=== PATIENT | male | born 1955 | race Caucasian/White ===

== ENCOUNTER 2018-11-20 23:06 | Emergency (ER) | payer OTHER ==
[~2018-11-20] VITALS: Ht 180.3 cm; Wt 102.1 kg
[2018-11-20 23:26] VITALS: BP 173/101
--- NOTE | 2018-11-20 23:30 | NUR ---
PT AMBULATED TO BED 2.
--- NOTE | 2018-11-20 23:40 | NUR ---
PT BIB SELF C/O RIGHT SHOULDER PAIN. PT STATES SUDDEN ONSET OF RIGHT SHOULD PAIN X2 WEEKS; LIMITED AROM, NO DEFORMITY, REDNESS OR SWELLING NOTED. PT STATES 10/10 SORE PAIN, RADIATES DOWN TO RIGHT HAND. +STRONG RADIAL PULSE WNL BL; STRONG AND EQUAL HAND BULLET MAKER BL. CAP REFIL <2. PT ACTING APPROPRIALTY; SPEAKING IN CLEAR AND COMPLETE SENTENCES. BREATHING EQUAL AND UNLABORED; AUDIBLE WHEEZING BL. PT SMOKE CIGARETTES DAILY. PT IN GOWN, IN BED; BED IN LOWER LOCKED POSITION. ERMD AWARE OF PT STATUS. PMH: DENIES RX: IBUPROFEN W/O RELIEF
--- NOTE | 2018-11-20 23:45 | NUR ---
DR. JORDAN AT BEDSIDE FOR EVALUATION.
[2018-11-20] MEDS ORDERED: ALBUTEROL SULFATE/IPRATROPIU 3 ML SOL IH ONE (23:55)
[2018-11-20] MEDS ORDERED: KETOROLAC 60 MG/2 ML VIAL IM ONE (23:55)
--- NOTE | 2018-11-21 00:10 | NUR ---
RT AT BEDSIDE FOR BREATHING TX.
--- NOTE | 2018-11-21 00:34 | NUR ---
Patient discharged with v/s stable. Written and verbal after care instructions given and explained. Patient alert, oriented and verbalized understanding of instructions. Ambulatory with steady gait. All questions addressed prior to discharge. ID band removed. Patient advised to follow up with PMD. Rx of ROBAXIN, MOTRIN, TRAMADOL, ZITHROMAX, AND ALBUTEROL given. Patient educated on indication of medication including possible reaction and side effects. Opportunity to ask questions provided and answered.
[2018-11-21 00:35] VITALS: BP 164/88
== END 2018-11-21 00:35 | disposition home or self-care (01) ==
LOC: MED 23:06
DX: S46.911A Strain of unspecified muscle, fascia and tendon at shoulder and upper arm level, right arm, initial encounter (principal); J20.9 Acute bronchitis, unspecified; X58.XXXA Exposure to other specified factors, initial encounter; Y93.89 Activity, other specified; Y92.89 Other specified places as the place of occurrence of the external cause; Y99.8 Other external cause status
CPT/HCPCS: 73030; 94640; 94760; 96372; 99283; J1885; J7620; Q0092

== ENCOUNTER 2020-10-17 20:39 | Emergency (ER) | payer OTHER ==
[~2020-10-17] VITALS: Ht 180.3 cm; Wt 122.5 kg
[2020-10-17 20:49] VITALS: BP 130/89
--- NOTE | 2020-10-17 20:53 | NUR ---
TO LOBBY A/W BED AMBULATORY
--- NOTE | 2020-10-17 21:25 | NUR ---
X-Ray at bedside.
--- NOTE | 2020-10-17 21:31 | NUR ---
PATIENT PRESENTS TO ED WITH C/O BLE PAIN AND SWELLING X 3 MONTHS . PT STATES THAT HE HAS SEEN HIS PMD AND HAS BEEN GIVEN MEDS BUT IT IS NOT BETTER . 3+ PITTING EDEMA IS NOTED. ABDOMEN IS VERY LARGE AND ROUND. DENIES N/V/D; AAOX4 WITH EVEN AND STEADY GAIT; LUNGS CLEAR BL; HR EVEN AND REGULAR; PT DENIES ANY FEVER, CP, SOB, OR COUGH AT THIS TIME; PATIENT STATES PAIN OF 0/10 AT THIS TIME; VSS; PATIENT POSITIONED FOR COMFORT; HOB ELEVATED BED DOWN. ER MD MADE AWARE OF PT STATUS.
--- NOTE | 2020-10-17 21:50 | NUR ---
DR. ALCANTARA AT BEDSIDE FOR EXAM
--- NOTE | 2020-10-17 21:50 | NUR ---
Dr. Obrien examining patient.
[2020-10-17] MEDS ORDERED: IBUP-2213 PO (22:50)
[2020-10-17] MEDS ORDERED: ACET-8386 PO (22:50)
[2020-10-17] MEDS ORDERED: PRED20TA5 PO (22:50)
[2020-10-17 22:55] VITALS: BP 130/89
--- NOTE | 2020-10-17 22:55 | NUR ---
Patient discharged with v/s stable. Written and verbal after care instructions given and explained. Patient alert, oriented and verbalized understanding of instructions. Ambulatory with steady gait. All questions addressed prior to discharge. ID band removed. Patient advised to follow up with PMD. Rx of MOTRIN, VICODIN, PREDNISONE given. Patient educated on indication of medication including possible reaction and side effects. Opportunity to ask questions provided and answered.
== END 2020-10-17 22:55 | disposition home or self-care (01) ==
LOC: MED 20:39
DX: R60.9 Edema, unspecified (principal); K46.9 Unspecified abdominal hernia without obstruction or gangrene; J45.909 Unspecified asthma, uncomplicated; I10 Essential (primary) hypertension; F17.200 Nicotine dependence, unspecified, uncomplicated
CPT/HCPCS: 71045; 99283

== ENCOUNTER 2020-11-24 00:38 | Inpatient (IN) | payer OTHER, SELFPAY ==
[~2020-11-24] VITALS: Ht 180.3 cm; Wt 124.3 kg
[~2020-11-24 00:38] MED LIST: ACET-8386 PO; IBUP-2213 PO; PRED20TA5 PO
[2020-11-24 00:41] VITALS: BP 127/79
[2020-11-24] MEDS ORDERED: PIPERACILLIN/TAZOBACTAM 3.375 GM in DEXTROSE 5% 50 ML IV ONE (02:00)
[2020-11-24] MEDS ORDERED: PIPERACILLIN/TAZOBACTAM 3.375 GM VIAL IV ONE (02:15)
[2020-11-24 02:17] LABS: BASOPHILS # (AUTO) 0.1 K/uL (0.00-0.22); BASOPHILS % (AUTO) 0.8 % (0.0-2.0); EOSINOPHILS # (AUTO) 0.2 K/uL (0-0.4); EOSINOPHILS % (AUTO) 1.3 % (0.0-4.0); HEMATOCRIT 39.9 % (36-52); HEMOGLOBIN 13.3 g/dL (12.0-18.0); LYMPHOCYTES # (AUTO) 1.8 K/uL (2.0-11.5); LYMPHOCYTES % (AUTO) 14.1 % (20.5-51.1); MEAN CORPUSCULAR HEMOGLOBIN 30 pg (27-31); MEAN CORPUSCULAR HGB CONC 33 g/dL (33-37); MEAN CORPUSCULAR VOLUME 90.7 fL (80-94); MONOCYTES % (AUTO) 7.8 % (1.7-9.3); NEUTROPHILS # (AUTO) 9.9 K/uL (1.8-7.7); PLATELET COUNT (AUTO) 250 K/uL (140-450); RED CELL DISTRIBUTION WIDTH 14.3 % (11.6-13.7); WHITE BLOOD COUNT (AUTO) 13.1 K/uL (4.8-10.8)
[2020-11-24 02:35] LABS: ALBUMIN 3.1 g/dL (3.4-5.0); ANION GAP 6.9 (8-16); CARBON DIOXIDE 37.9 mmol/L (21-32); CREATININE 1.2 mg/dL (0.6-1.3); POTASSIUM 3.8 mmol/L (3.5-5.1); TOTAL BILIRUBIN 0.4 mg/dL (0.0-1.0)
[2020-11-24] MEDS ORDERED: KETOROLAC 30 MG/ML VIAL ONE (05:10)
[2020-11-24] MEDS ORDERED: HYDR-5080 PO (06:04)
[2020-11-24] MEDS ORDERED: FURO-570 PO (06:04)
[2020-11-24] MEDS ORDERED: VANCOMYCIN PER PHARMACY MC PRN (08:25)
[2020-11-24] MEDS ORDERED: ACETAMINOPHEN 325 MG TAB PO PRN (08:25)
[2020-11-24] MEDS ORDERED: KCL 20 MEQ/WATER INJ PREMIX 200 ML IV PRN (08:25)
[2020-11-24] MEDS ORDERED: NACL 0.9% 1,000 ML IV SCH (08:25)
[2020-11-24] MEDS ORDERED: MORPHINE SULFATE 4 MG/ML SYR IVP PRN (08:25)
[2020-11-24] MEDS ORDERED: MAG SULF 2000 MG/WATER PREMIX 50 ML IV PRN (08:25)
[2020-11-24] MEDS ORDERED: HYDROcodone/APAP 5/325 MG 1 TAB TAB PO PRN (08:25)
[2020-11-24] MEDS ORDERED: ONDANSETRON 4 MG/2 ML VIAL IVP PRN (08:25)
[2020-11-24] MEDS ORDERED: MAGNESIUM OXIDE 400 MG TAB PO PRN (08:25)
[2020-11-24] MEDS ORDERED: POTASSIUM CHLORIDE 10 MEQ TABER PO PRN (08:25)
[2020-11-24 09:13] VITALS: BP 131/69
[2020-11-24 09:25] VITALS: BP 125/72
[2020-11-24] MEDS ORDERED: VANCOMYCIN HCL 1.25 GM in DEXTROSE 5% 250 ML IV SCH (11:00)
[2020-11-24] MEDS ORDERED: HYDROcodone/APAP 10/325 MG 1 TAB TAB PO PRN (16:35)
== END 2020-11-24 18:20 | disposition left against medical advice (07) | DRG 383 ==
LOC: MED 00:38 → MTU 08:27
PROVIDERS: ADMIT Hospitalist; ATTEND Hospitalist
DX: L03.211 Cellulitis of face (principal); E66.01 Morbid (severe) obesity due to excess calories; I10 Essential (primary) hypertension; J45.909 Unspecified asthma, uncomplicated; Z20.822 Contact with and (suspected) exposure to COVID-19; Z53.29 Procedure and treatment not carried out because of patient's decision for other reasons; Z68.38 Body mass index [BMI] 38.0-38.9, adult
CPT/HCPCS: 36415; 70486; 80053; 84484; 85025; 87040; 87081; 93005; 96365; 99285; J0696; J1885; J2543; J3370; J7060

== ENCOUNTER 2022-05-30 06:45 | Inpatient (IN) | payer OTHER, MEDICARE ==
[~2022-05-30] VITALS: Ht 180.3 cm; Wt 100.7 kg
[2022-05-30 06:45] VITALS: BP 171/105
[~2022-05-30 06:45] MED LIST changes: -ACET-8386 PO; +FURO-570 PO; +HYDR-5080 PO; -IBUP-2213 PO; -PRED20TA5 PO
--- NOTE | 2022-05-30 06:52 | NUR ---
PATIENT W/C ASSISTED TO BED 4
--- NOTE | 2022-05-30 06:54 | NUR ---
Patient being evaluated by physician at bedside.
--- NOTE | 2022-05-30 06:55 | NUR ---
RT CALLED BY ASSISTANT TO THE [facility]. STATED THEY WOULD COME DOWN TO ASSESS PT WHEN ORDERS WHERE IN PLACE. AARON FITZPATRICK AWARE.
[2022-05-30] MEDS ORDERED: ALBUTEROL 0.083% 2.5 MG/3 ML NEBU INH ONE (07:05)
[2022-05-30] MEDS ORDERED: IPRATROPIUM 0.02% 0.5 MG/2.5 ML NEBU INH ONE (07:05)
[2022-05-30] MEDS ORDERED: DEXAMETHASONE 10 MG/ML VIAL IVP ONE (07:05)
--- NOTE | 2022-05-30 07:08 | NUR ---
RT at bedside.
--- NOTE | 2022-05-30 07:08 | NUR ---
PMHX: COPD; RECEIVED ON SUPPLEMENTAL OXYGEN AT 4 LPM VIA [facility] GIVEN ORDERED ENCOURAGED PATIEN FOR INTERMITTENT DEEP BREATHING DURING THERAPY POST THERAPY TITRATED FIO2 TO 2 LPM MCKENZIE
--- NOTE | 2022-05-30 07:08 | NUR ---
18G IV placed on right AC using aseptic technique. Saline flush and no infiltration noted. Pt has no c/o.
--- NOTE | 2022-05-30 07:13 | NUR ---
LAB AT BEDSIDE
[2022-05-30 07:26] LABS: BASOPHILS # (AUTO) 0.1 K/uL (0.00-0.22); BASOPHILS % (AUTO) 1.2 % (0.0-2.0); EOSINOPHILS # (AUTO) 0.4 K/uL (0-0.4); EOSINOPHILS % (AUTO) 4.9 % (0.0-4.0); HEMATOCRIT 39.7 % (36-52); HEMOGLOBIN 12.9 g/dL (12.0-18.0); LYMPHOCYTES # (AUTO) 1.6 K/uL (2.0-11.5); LYMPHOCYTES % (AUTO) 20.6 % (20.5-51.1); MEAN CORPUSCULAR HEMOGLOBIN 29 pg (27-31); MEAN CORPUSCULAR HGB CONC 32 g/dL (33-37); MEAN CORPUSCULAR VOLUME 90.7 fL (80-94); MONOCYTES # (AUTO) 0.7 K/uL (0.8-1.0); MONOCYTES % (AUTO) 8.4 % (1.7-9.3); NEUTROPHILS # (AUTO) 5.2 K/uL (1.8-7.7); NEUTROPHILS % (AUTO) 64.9 % (42.2-75.2); PLATELET COUNT (AUTO) 178 K/uL (140-450); RED BLOOD CELL COUNT(AUTO) 4.38 MIL/uL (4.20-6.10); RED CELL DISTRIBUTION WIDTH 14.6 % (11.6-13.7)
--- NOTE | 2022-05-30 07:30 | NUR ---
ASSUMED PATIENT CARE, NURSING ASSESSMENT COMPLETED.
[2022-05-30 08:22] LABS: ALBUMIN 3.3 g/dL (3.4-5.0); ANION GAP 10.1 (8-16); CARBON DIOXIDE 32.3 mmol/L (21-32); POTASSIUM 4.4 mmol/L (3.5-5.1); TOTAL BILIRUBIN 0.2 mg/dL (0.0-1.0)
[2022-05-30] MEDS ORDERED: OSELTAMIVIR PHOSPHATE 75 MG CAP PO ONE (09:05)
--- NOTE | 2022-05-30 09:14 | NUR ---
DISPO AND MEDICAL DECISION MAKING INPATIENT ADMISSION FOR FURTHER MANAGEMENT. PATIENT UPDATED ACCORDINGLY.
[2022-05-30] MEDS ORDERED: POTASSIUM CHLORIDE 10 MEQ TABER PO PRN (09:35)
[2022-05-30] MEDS ORDERED: ONDANSETRON 4 MG/2 ML VIAL IVP PRN (09:35)
[2022-05-30] MEDS ORDERED: MAGNESIUM OXIDE 400 MG TAB PO PRN (09:35)
[2022-05-30] MEDS ORDERED: HYDROcodone/APAP 5/325 MG 1 TAB TAB PO PRN (09:35)
[2022-05-30] MEDS ORDERED: ACETAMINOPHEN 325 MG TAB PO PRN (09:35)
[2022-05-30] MEDS ORDERED: MORPHINE SULFATE 4 MG/ML SYR IVP PRN (09:35)
[2022-05-30] MEDS: ALBUTEROL SULFATE/IPRATROPIU 3 ML SOL IH SCH ×2 (12:54→19:00)
--- NOTE | 2022-05-30 17:12 | NUR ---
TRANSPORTED TO [facility] FLOOR VIA GURNEY WITH ACLS PROTOCOL, PATIENT REPORT GIVEN TO COLEEN HARLEY. CONTINUITY OF CARE ENDORSED. PATIENT UPDATED ACCORDINGLY.
[2022-05-30] MEDS: BUDESONIDE 0.5 MG/2 ML NEBU INH SCH (19:30)
[2022-05-30] MEDS: HYDROcodone/APAP 7.5/325 MG 1 TAB PO PRN (19:44)
--- NOTE | 2022-05-30 19:44 | NUR ---
PRN PAIN MEDICATION WAS GIVEN TO PT DUE TO LOWER EXTREMITIES PAIN WITH PAIN SCALE OF 8/10. ALL SAFETY MEASURES IMPLEMENTED. BED IN LOW POSITION, BED WHEELS ON LOCKED AND CALL LIGHT WITHIN REACH.
--- NOTE | 2022-05-30 19:45 | NUR ---
RECEIVED PT FROM MORNING SHIFT NURSE. PT IS AOX4, AMBULATORY, ABLE TO VERBALIZE NEEDS AND ABLE TO FOLLOW COMMANDS. PT IS ON 1L NASAL CANNULA AND ON REGULAR DIET. PT HAS IV ON LEFT FOREARM GAUGE 18 SALINE LOCK. PT HAS NO S/S OF RESPIRATORY DISTRESS AND NO COMPLAIN OF PAIN AT THIS TIME, PT SKIN IS INTACT. ALL SAFETY MEASURES IMPLEMENTED. BED IN LOW POSITION, BED WHEELS ON LOCKED AND CALL LIGHT WITHIN REACH.
--- NOTE | 2022-05-30 19:56 | NUR ---
NOTIFIED DR. CALHOUN DUE PT WANTS HIS MEDICATION OF XANAX 0.5MG. DR. CALHOUN ORDER THE MEDICATION. ORDER WAS MADE AND CARRIED OUT.
[2022-05-30 20:00] VITALS: BP 154/92
[2022-05-30] MEDS ORDERED: ALPRAZolam 0.5 MG TAB PO PRN (20:10)
[2022-05-30] MEDS: methylPREDNISolone SS 40 MG/ML VIAL IVP SCH (20:27)
[2022-05-30] MEDS: FAMOTIDINE 20 MG TAB PO SCH (20:28)
--- NOTE | 2022-05-30 20:28 | NUR ---
SCHEDULED AND PRESCRIBED MEDICATION WAS GIVEN TO PT EXCEPT TAMIFLU DUE TO NOT AVAILABLE TO DEPARTMENT. CALLED HOUSE SUP. REGARDING THE MEDICATION. WILL GIVE IT, IF SHE CAN GET ONE. ALL SAFETY MEASURES IMPLEMENTED. BED IN LOW POSITION, BED WHEELS ON LOCKED AND CALL LIGHT WITHIN REACH.
[2022-05-30] MEDS: OSELTAMIVIR PHOSPHATE 75 MG CAP PO SCH (22:33)
--- NOTE | 2022-05-30 22:33 | NUR ---
TAMIFLU WAS GIVEN TO PT PER MD ORDER. ALL SAFETY MEASURES IMPLEMENTED. BED IN LOW POSITION, BED WHEELS ON LOCKED AND CALL LIGHT WITHIN REACH.
[2022-05-31] VITALS: BP 136/72
--- NOTE | 2022-05-31 | NUR ---
PT WAS GIVEN JELLO, PUDDING AND WATER PER PT REQUEST. NO COMPLAIN OF PAIN AT THIS TIME. NO S/S OF RESPIRATORY DISTRESS NOTED. ALL SAFETY MEASURES IMPLEMENTED. BED IN LOW POSITION, BED WHEELS ON LOCKED AND CALL LIGHT WITHIN REACH.
[2022-05-31] MEDS: ALBUTEROL SULFATE/IPRATROPIU 3 ML SOL IH SCH ×3 (01:00→13:00)
--- NOTE | 2022-05-31 02:00 | NUR ---
PT IS SLEEPING. CHEST RISE AND FALL SYMMETRICALLY NOTED. RESPIRATION IS EVEN AND UNLABORED. ALL SAFETY MEASURES IMPLEMENTED. BED IN LOW POSITION, BED WHEELS ON LOCKED AND CALL LIGHT WITHIN REACH.
[2022-05-31 04:00] VITALS: BP 125/79
--- NOTE | 2022-05-31 04:00 | NUR ---
CHECKED PT STILL SLEEPING. CHEST RISE AND FALL SYMMETRICALLY NOTED. RESPIRATION IS EVEN AND UNLABORED. ALL SAFETY MEASURES IMPLEMENTED. BED IN LOW POSITION, BED WHEELS ON LOCKED AND CALL LIGHT WITHIN REACH.
[2022-05-31 06:57] LABS: BASOPHILS % (AUTO) 0.2 % (0.0-2.0); HEMATOCRIT 39.7 % (36-52); HEMOGLOBIN 12.9 g/dL (12.0-18.0); LYMPHOCYTES # (AUTO) 1.3 K/uL (2.0-11.5); LYMPHOCYTES % (AUTO) 10.2 % (20.5-51.1); MEAN CORPUSCULAR HEMOGLOBIN 29 pg (27-31); MEAN CORPUSCULAR HGB CONC 33 g/dL (33-37); MEAN CORPUSCULAR VOLUME 89.8 fL (80-94); MONOCYTES # (AUTO) 0.8 K/uL (0.8-1.0); MONOCYTES % (AUTO) 6.8 % (1.7-9.3); NEUTROPHILS # (AUTO) 10.2 K/uL (1.8-7.7); NEUTROPHILS % (AUTO) 82.8 % (42.2-75.2); PLATELET COUNT (AUTO) 181 K/uL (140-450); RED BLOOD CELL COUNT(AUTO) 4.42 MIL/uL (4.20-6.10); RED CELL DISTRIBUTION WIDTH 14.5 % (11.6-13.7); WHITE BLOOD COUNT (AUTO) 12.3 K/uL (4.8-10.8)
[2022-05-31] MEDS: BUDESONIDE 0.5 MG/2 ML NEBU INH SCH (06:58)
[2022-05-31 07:22] LABS: MAGNESIUM 2.1 mg/dL (1.8-2.4); PHOSPHORUS 3.3 mg/dL (2.5-4.9)
[2022-05-31 07:24] LABS: ANION GAP 8.1 (8-16); CARBON DIOXIDE 31.3 mmol/L (21-32); POTASSIUM 4.4 mmol/L (3.5-5.1)
--- NOTE | 2022-05-31 07:42 | NUR ---
PT IS STABLE. ENDORSED PT TO MORNING SHIFT NURSE FOR CONTINUITY OF CARE.
--- NOTE | 2022-05-31 07:45 | NUR ---
RECEIVED PT FROM NIGHT RN, PT IS ASLEEP AND LYING ON THE BED WITH SIDE RAILS UP AND CALL LIGHT WITHIN REACH, VISIBLE CHEST RISE AND FALL, PT IS ON O2 3L NC, ON ISOLATION FOR INFLUENZA POSITIVE, IV LINE NOTED ON THE LEFT AC G. 18 ON SALINE LOCK, NO SIGN OF DISTRESS NOTED AND WILL CONTINUE TO MONITOR PT.
[2022-05-31 08:00] VITALS: BP 125/79
[2022-05-31] MEDS ORDERED: ENOXAPARIN 40 MG/0.4 ML SYR SUBQ SCH (09:00)
[2022-05-31] MEDS: methylPREDNISolone SS 40 MG/ML VIAL IVP SCH (09:57)
[2022-05-31] MEDS: FAMOTIDINE 20 MG TAB PO SCH (09:59)
[2022-05-31] MEDS: OSELTAMIVIR PHOSPHATE 75 MG CAP PO SCH (10:10)
[2022-05-31] MEDS ORDERED: TAM75 PO (10:55)
[2022-05-31] MEDS ORDERED: ALPR0.5T20 PO (10:55)
--- NOTE | 2022-05-31 11:15 | NUR ---
DC PLANNING SW MET W/ PT AT BEDSIDE TO COMPLETE ASSESSMENT. PT REPORTS RESIDING IN A SINGLE STORY HOME WITH HIS MOTHER AT THE ADDRESS LISTED ON FILE. PT IDENTIFIED QING CERNA, SISTER, AND NACHO CERNA, MOTHER, [phone] EMERGENCY CONTACTS. PT REPORTS MEETING WITH PCP REGULARLY LAST VISIT 1 MONTH AGO. SW SPOKE TO PT ABOUT IMPORTANCE OF FOLLOW UP HOWEVER PT DECLINED FOR SW TO SCHEDULE FOLLOW UP APPT. PT REPORTS NONCOMPLIANCE AND DENIES BARRIERS IN ACCESS TO NEEDED MEDICATIONS. PT REPORTS RECENT CHANGE IN DR AND REPORTS HE WILL HAVE PRESCRIPTION FILLED BY NEW DR. PT REPORTS RECEIVING MEDICATION FROM [facility], WHEN NEEDED. PT REPORTS BEING INDEPENDENT IN ALL ACTIVITIES AND DENIES USE OF DME. PT DENIES HX OF MH/[place], DIABETES, DIALYSIS, HH, SNF PLACEMENT. PT REPORTS DC PLAN IS TO RETURN HOME. SW ENCOURAGED PT TO MAKE SURE THAT HE MAKES FOLLOW UP APPT WITH PCP. PT REPORTS HE WILL AND HIS DAUGHTER IS MAKING ARRANGEMENTS TO DO SO. SW INQUIRED ON RESOURCES NEEDED, PT DECLINED. Addendum: 06/01/22 at 0913 by Macho DAVIS Amended: Links added.
--- NOTE | 2022-05-31 11:30 | NUR ---
PT AMBULATED AND SATURATING AT 92%-93% ON ROOM AIR.
--- NOTE | 2022-05-31 11:47 | NUR ---
PATIENT HAS BEEN SCREENED AND CATEGORIZED MODERATE NUTRITION RISK. PATIENT WILL BE SEEN WITHIN 3-5 DAYS OF ADMISSION. 06/02/2212/18/[address] REVIEWED BY [address] MENDEZ RD
[2022-05-31 12:00] VITALS: BP 140/89
[2022-05-31 16:00] VITALS: BP 151/86
[2022-05-31] MEDS ORDERED: PRED20TA5 PO (16:52)
[2022-05-31] MEDS ORDERED: FAMO20TA13 PO (16:57)
--- NOTE | 2022-05-31 17:06 | NUR ---
PT WAS FEELING AGITATED AND WAS MEDICATED NOW, BP IS 151/87, PULSE IS 83
[2022-05-31] MEDS: HYDROcodone/APAP 7.5/325 MG 1 TAB PO PRN (17:38)
--- NOTE | 2022-05-31 18:48 | NUR ---
DISCHARGED PT TO HOME ACCOMPANIED BY LOIS, DISCHARGED INSTRUCTIONS GIVEN TO PT AND VERBALIZED UNDERSTANDING, IV LINE RE MOVED AND PT IS STABLE AT THIS TIME.
== END 2022-05-31 18:48 | disposition home or self-care (01) | DRG 140 ==
LOC: MED 06:45 → MTU 09:36
PROVIDERS: ADMIT Hospitalist; ATTEND Emergency Medicine
DX: J44.1 Chronic obstructive pulmonary disease with (acute) exacerbation (principal); J96.21 Acute and chronic respiratory failure with hypoxia; J10.1 Influenza due to other identified influenza virus with other respiratory manifestations; Z20.822 Contact with and (suspected) exposure to COVID-19; I10 Essential (primary) hypertension; F17.210 Nicotine dependence, cigarettes, uncomplicated
CPT/HCPCS: 36415; 71045; 80048; 80053; 83735; 83880; 84100; 84484; 85025; 93005; 94640; 96374; 99285; J1100; J1650; J2920; J7613; J7626; J7644; Q0092

== ENCOUNTER 2022-06-01 08:14 | Inpatient (IN) | payer OTHER, MEDICARE ==
[~2022-06-01] VITALS: Ht 175.3 cm; Wt 95.3 kg
[~2022-06-01 08:14] MED LIST changes: +ALPR0.5T20 PO; +FAMO20TA13 PO; +PRED20TA5 PO; +TAM75 PO
[2022-06-01 08:26] VITALS: BP 149/92
--- NOTE | 2022-06-01 08:29 | NUR ---
PT AMBULATED TO ER BED 9
[2022-06-01] MEDS ORDERED: ALBUTEROL SULFATE/IPRATROPIU 3 ML SOL IH ONE (08:35)
[2022-06-01] MEDS ORDERED: methylPREDNISolone SS 125 MG/2 ML VIAL IVP ONE (08:35)
--- NOTE | 2022-06-01 08:50 | NUR ---
67/m walkd in c/o cough and sob. pt was dc from here with dx pna and flu a. pt reports not able to strip picker px from pharmacy and states sob got worse today. on room air, no acute distress, satting 90%, hx copd. vitals stable. aao4, ambulatory. PMH: COPD, HTN
--- NOTE | 2022-06-01 08:55 | NUR ---
blood drawn by mechanical maintenance supervisor
--- NOTE | 2022-06-01 09:01 | NUR ---
rt at bedside for br tx
[2022-06-01 09:02] LABS: BASOPHILS # (AUTO) 0.1 K/uL (0.00-0.22); BASOPHILS % (AUTO) 0.4 % (0.0-2.0); EOSINOPHILS % (AUTO) 0.2 % (0.0-4.0); HEMATOCRIT 43.4 % (36-52); LYMPHOCYTES # (AUTO) 2.7 K/uL (2.0-11.5); LYMPHOCYTES % (AUTO) 22.8 % (20.5-51.1); MEAN CORPUSCULAR HEMOGLOBIN 29 pg (27-31); MEAN CORPUSCULAR HGB CONC 32 g/dL (33-37); MONOCYTES # (AUTO) 1.2 K/uL (0.8-1.0); MONOCYTES % (AUTO) 9.9 % (1.7-9.3); NEUTROPHILS # (AUTO) 7.8 K/uL (1.8-7.7); NEUTROPHILS % (AUTO) 66.7 % (42.2-75.2); PLATELET COUNT (AUTO) 212 K/uL (140-450); RED BLOOD CELL COUNT(AUTO) 4.83 MIL/uL (4.20-6.10); RED CELL DISTRIBUTION WIDTH 14.8 % (11.6-13.7); WHITE BLOOD COUNT (AUTO) 11.7 K/uL (4.8-10.8)
--- NOTE | 2022-06-01 09:21 | NUR ---
pt requesting for xanax, stating he is having an anxiety symptoms. abelardod made aware
[2022-06-01 09:24] LABS: ALBUMIN 3.5 g/dL (3.4-5.0); ANION GAP 8.8 (8-16); CARBON DIOXIDE 33.4 mmol/L (21-32); CREATININE 1.1 mg/dL (0.6-1.3); POTASSIUM 4.2 mmol/L (3.5-5.1); TOTAL BILIRUBIN 0.4 mg/dL (0.0-1.0)
[2022-06-01] MEDS ORDERED: LORazepam 1 MG TAB PO ONE (09:25)
--- NOTE | 2022-06-01 09:27 | NUR ---
patient refused ativan 1mg po. ermd made aware
[2022-06-01] MEDS ORDERED: MAGNESIUM OXIDE 400 MG TAB PO PRN (10:05)
[2022-06-01] MEDS ORDERED: POTASSIUM CHLORIDE 10 MEQ TABER PO PRN (10:05)
[2022-06-01] MEDS ORDERED: KCL 20 MEQ/WATER INJ PREMIX 200 ML IV PRN (10:05)
[2022-06-01] MEDS ORDERED: MAG SULF 2000 MG/WATER PREMIX 50 ML IV PRN (10:05)
[2022-06-01] MEDS ORDERED: ACETAMINOPHEN 325 MG TAB PO PRN (10:05)
[2022-06-01] MEDS ORDERED: ALPRAZolam 0.5 MG TAB PO ONE (10:20)
--- NOTE | 2022-06-01 10:41 | NUR ---
PT REFUSED TO BE IN A GOWN
--- NOTE | 2022-06-01 10:41 | NUR ---
PT SWABBED FOR COVID
--- NOTE | 2022-06-01 11:20 | NUR ---
ADMITTED PT. FROM ER VIA WHEELCHAIR. A & O X4. NO SOB, NOTED. KEEP COMFORTABLE ON BED. REFUSED TO WEAR HOSPITAL GOWN. EXPLAINED DIAGNOSIS, PLAN OF CARE, PAIN MANAGEMENT TEACHING, SMOKING CESSATION, DROPLET PRECAUTION, USE OF CALL LIGHT/BED/TV/BATHROOM. VERBALIZED UNDERSTANDING. CALL LIGHT WITHIN REACH.
--- NOTE | 2022-06-01 11:23 | NUR ---
Patient will be admitted to care of DR ROJAS. Admited to MS. Will go to [id number]. Belongings list completed. Report to JAKOB KERR.
[2022-06-01 11:30] VITALS: BP 158/103
[2022-06-01] MEDS: AZITHROMYCIN 500 MG in DEXTROSE 5% 250 ML IV SCH (11:59)
--- NOTE | 2022-06-01 13:40 | NUR ---
RESPIRATORY THERAPIST CAME FOR PT. BREATHING TREATMENT.
[2022-06-01] MEDS: ALBUTEROL SULFATE/IPRATROPIU 3 ML SOL IH SCH ×2 (13:43→19:35)
[2022-06-01] MEDS: HYDROcodone/APAP 5/325 MG 1 TAB TAB PO PRN ×2 (14:10→20:41)
--- NOTE | 2022-06-01 16:20 | NUR ---
AWAKE, RESTING ON BED COMFORTABLY. NO SOB, NOTED. WILL MONITOR.
[2022-06-01] MEDS: methylPREDNISolone SS 40 MG/ML VIAL IVP SCH ×2 (18:57→23:55)
--- NOTE | 2022-06-01 19:30 | NUR ---
REPORT GIVEN TO MIGUEL. IN STABLE CONDITION.
--- NOTE | 2022-06-01 19:31 | NUR ---
RECEIVED REPORT FROM DAY SHIFT NURSE. PATIENT IS AWAKE ALERT ORIENTED WATCHING TV. ON ROOM AIR , NO SOB. SAFETY MEASURES IN PLACE. CALL LIGHT WITHIN REACH. NOP Addendum: 06/01/22 at 2226 by Radha Cotton RN RN NO COMPLAINTS OF PAIN AT THIS TIME. IV ACCESS ON THE LEFT HAND SALINE LOCK. WILL CONTINUE TO MONITOR.
[2022-06-01 20:00] VITALS: BP 146/96
--- NOTE | 2022-06-01 20:40 | NUR ---
ALL 2100 SCHEDULED MEDICATIONS ADMINISTERED ORDERED.
[2022-06-01] MEDS: OSELTAMIVIR PHOSPHATE 75 MG CAP PO SCH (21:36)
[2022-06-01] MEDS: BUDESONIDE 0.5 MG/2 ML NEBU INH SCH (23:00)
--- NOTE | 2022-06-02 00:15 | NUR ---
PATIENT COMPLAINED OF HEADACHE, MEDICATED WITH TYLENOL PRN.
[2022-06-02] MEDS: ALBUTEROL SULFATE/IPRATROPIU 3 ML SOL IH SCH ×3 (01:00→13:44)
[2022-06-02] MEDS: HYDROcodone/APAP 5/325 MG 1 TAB TAB PO PRN (05:07)
[2022-06-02] MEDS: methylPREDNISolone SS 40 MG/ML VIAL IVP SCH ×2 (05:17→12:30)
--- NOTE | 2022-06-02 05:20 | NUR ---
PATIENT COMPLAINED OF INABILITY TO SLEEP AND FEELING ANXIOUS. PLACE A CALL TO DR CALHOUN WITH ORDER NOTED CARRIED OUT.
[2022-06-02] MEDS ORDERED: ALPRAZolam 0.25 MG TAB ONE (05:39)
[2022-06-02] MEDS: ALPRAZolam 0.5 MG TAB PO PRN ×2 (05:45→13:03)
[2022-06-02 06:00] LABS: HEMATOCRIT 41.8 % (36-52); HEMOGLOBIN 13.6 g/dL (12.0-18.0); LYMPHOCYTES # (AUTO) 1.3 K/uL (2.0-11.5); LYMPHOCYTES % (AUTO) 8.8 % (20.5-51.1); MEAN CORPUSCULAR HEMOGLOBIN 29 pg (27-31); MEAN CORPUSCULAR HGB CONC 33 g/dL (33-37); MONOCYTES # (AUTO) 0.4 K/uL (0.8-1.0); MONOCYTES % (AUTO) 2.4 % (1.7-9.3); NEUTROPHILS # (AUTO) 13.5 K/uL (1.8-7.7); NEUTROPHILS % (AUTO) 88.8 % (42.2-75.2); PLATELET COUNT (AUTO) 220 K/uL (140-450); RED BLOOD CELL COUNT(AUTO) 4.69 MIL/uL (4.20-6.10); RED CELL DISTRIBUTION WIDTH 14.5 % (11.6-13.7); WHITE BLOOD COUNT (AUTO) 15.2 K/uL (4.8-10.8)
[2022-06-02 06:28] LABS: MAGNESIUM 2.1 mg/dL (1.8-2.4); PHOSPHORUS 3.7 mg/dL (2.5-4.9)
[2022-06-02 06:30] LABS: ANION GAP 12.5 (8-16); CARBON DIOXIDE 27.4 mmol/L (21-32); CREATININE 1.1 mg/dL (0.6-1.3); POTASSIUM 3.9 mmol/L (3.5-5.1)
--- NOTE | 2022-06-02 07:25 | NUR ---
GAVE BEDSIDE REPORT TO DAY SHIFT NURSE SANNA FOR CONTINUITY OF CARE.
--- NOTE | 2022-06-02 07:26 | NUR ---
RECEIVED REPORT FROM CODING FILE CLERK NURSE GENE FOR CONTINUITY OF CARE. PT AWAKE IN BED. RESPIRATIONS EVEN AND UNLABORED ON RA. NO C/O OF PAIN AT THIS TIME. NO DISTRESS NOTED. CALL LIGHT WITHIN REACH. SAFETY PRECAUTIONS IN PLACE.
[2022-06-02] MEDS: BUDESONIDE 0.5 MG/2 ML NEBU INH SCH (07:30)
[2022-06-02 08:00] VITALS: BP 154/109
--- NOTE | 2022-06-02 09:24 | NUR ---
PATIENT HAS BEEN SCREENED AND CATEGORIZED LOW NUTRITION RISK. PATIENT WILL BE SEEN WITHIN 7 DAYS OF ADMISSION. 06/08/[address]
[2022-06-02] MEDS: OSELTAMIVIR PHOSPHATE 75 MG CAP PO SCH (09:25)
--- NOTE | 2022-06-02 09:25 | NUR ---
ADMINISTERED DUE MED. PT TEACHING ABOUT MED GIVEN. PT VERBALIZED UNDERSTANDING.
--- NOTE | 2022-06-02 09:50 | NUR ---
PT C/O OF BACK PAIN 12/25. PT REUESTING HIS PRN PAIN MED NORCO TO BE INCREASED TO 10MG. DR PARKER WAS INFORMED. MD ADVISES TO KEEP NORCO TO 5MG. PT WAS INFORMED. PT REFUSED 5MG NORCO. OFFERED MORPHINE BUT PT STATED "I DON'T TAKE MORPHINE". PT CONTINUOUSLY MONITORED.
[2022-06-02] MEDS: AZITHROMYCIN 500 MG in DEXTROSE 5% 250 ML IV SCH (11:00)
[2022-06-02] MEDS ORDERED: NEBU-109 MC (11:43)
[2022-06-02] MEDS ORDERED: ALBU3SOL83 IH (11:43)
[2022-06-02] MEDS ORDERED: AZIT500T8 PO (11:45)
[2022-06-02 12:32] VITALS: BP 148/89
--- NOTE | 2022-06-02 12:45 | NUR ---
IV ABX ADMINISTERED BY COLEEN GREEN. PT TOLERATED WELL. NO ADVERSE REACTION NOTED.
--- NOTE | 2022-06-02 13:03 | NUR ---
PT TOO ANXIOUS. PT STATED HE HAD BAD ANXIETY AND HE'S TAKING XANAX FOR IT. PRN MED FOR ANXIETY ADMINISTERED. PT CONTINUOUSLY ADMINISTERED.
--- NOTE | 2022-06-02 14:08 | NUR ---
Patient's Plan of Care was discussed and reviewed with CONVENTIONS RESERVATIONIST:
[2022-06-02] MEDS ORDERED: FLUT1BLS3 IH (15:30)
--- NOTE | 2022-06-02 15:32 | NUR ---
DISCHARGE PAPERS DISCUSSED WITH THE PT. PT VERBALIZED UNDERSTANDING. REMOVED IV CATHETER TIP INTACT. PT COMFORTABLY SITTING IN BED WITH NO ACUTE DISTRESS NOTED, READY FOR DC. AWAITING FOR HIS FAMILY MEMBER TO PICK HIM UP.
--- NOTE | 2022-06-02 16:55 | NUR ---
PT DISCHARGED HOME. PT WALKED OUT TO FRONT LOBBY BY NURSE. REMOVED ID WRIST BAND. ALL BELONGINGS TAKEN UPON DC. PT IS STABLE.
[2022-06-02] MEDS ORDERED: FAMOTIDINE 20 MG TAB PO SCH (21:00)
== END 2022-06-02 16:57 | disposition home or self-care (01) | DRG 140 ==
LOC: MED 08:14 → MMU 10:05
PROVIDERS: ADMIT Hospitalist; ATTEND Student in an Organized Health Care Education/Training Program
DX: J44.1 Chronic obstructive pulmonary disease with (acute) exacerbation (principal); J96.01 Acute respiratory failure with hypoxia; E86.0 Dehydration; D72.829 Elevated white blood cell count, unspecified; J10.1 Influenza due to other identified influenza virus with other respiratory manifestations; Z20.822 Contact with and (suspected) exposure to COVID-19; I10 Essential (primary) hypertension; Z72.0 Tobacco use
CPT/HCPCS: 36415; 80048; 80053; 83735; 84100; 84484; 85025; 87081; 93005; 94640; 96374; 99285; J0456; J1644; J2920; J2930; J7060; J7626

== ENCOUNTER 2023-01-27 21:16 | Inpatient (IN) | payer OTHER, MEDICARE ==
[~2023-01-27] VITALS: Ht 180.3 cm; Wt 104.3 kg
[~2023-01-27 21:16] MED LIST changes: +ALBU3SOL83 IH; -ALPR0.5T20 PO; +AZIT500T8 PO; +FLUT1BLS3 IH; -HYDR-5080 PO; +NEBU-109 MC
[2023-01-27 21:23] VITALS: BP 151/83; PULSE 82; RESP 16; TEMP 97.4; O2SAT 91
[2023-01-27 22:04] LABS: FLU A ANTIGEN negative (NEGATIVE); FLU B ANTIGEN negative (NEGATIVE)
[2023-01-27] MEDS ORDERED: KETOROLAC 30 MG/ML VIAL IM ONE (23:05)
[2023-01-27 23:20] LABS: BASOPHILS # (AUTO) 0.1 K/uL (0.00-0.22); BASOPHILS % (AUTO) 0.5 % (0.0-2.0); EOSINOPHILS # (AUTO) 0.1 K/uL (0-0.4); EOSINOPHILS % (AUTO) 1.3 % (0.0-4.0); HEMATOCRIT 37.8 % (36-52); HEMOGLOBIN 12.9 g/dL (12.0-18.0); LYMPHOCYTES # (AUTO) 1.5 K/uL (2.0-11.5); LYMPHOCYTES % (AUTO) 13.3 % (20.5-51.1); MEAN CORPUSCULAR HEMOGLOBIN 29 pg (27-31); MEAN CORPUSCULAR HGB CONC 34 g/dL (33-37); MEAN CORPUSCULAR VOLUME 86.1 fL (80-94); MONOCYTES # (AUTO) 0.8 K/uL (0.8-1.0); MONOCYTES % (AUTO) 7.5 % (1.7-9.3); NEUTROPHILS # (AUTO) 8.7 K/uL (1.8-7.7); NEUTROPHILS % (AUTO) 77.4 % (42.2-75.2); PLATELET COUNT (AUTO) 183 K/uL (140-450); RED BLOOD CELL COUNT(AUTO) 4.39 MIL/uL (4.20-6.10); RED CELL DISTRIBUTION WIDTH 13.3 % (11.6-13.7); WHITE BLOOD COUNT (AUTO) 11.2 K/uL (4.8-10.8)
[2023-01-27 23:48] LABS: ANION GAP 7.8 (8-16); CARBON DIOXIDE 32.2 mmol/L (21-32); CREATININE 1.1 mg/dL (0.6-1.3); TOTAL BILIRUBIN 0.6 mg/dL (0.0-1.0); TOTAL PROTEIN, SERUM 6.6 g/dL (6.4-8.2)
[2023-01-28] MEDS ORDERED: LISI-487 PO (00:42)
[2023-01-28] MEDS ORDERED: HYDROcodone/APAP 5/325 MG 1 TAB TAB PO PRN (00:50)
[2023-01-28] MEDS ORDERED: LORazepam 2 MG/ML VIAL IVP PRN (00:50)
[2023-01-28] MEDS ORDERED: ONDANSETRON 4 MG/2 ML VIAL IVP PRN (00:50)
[2023-01-28] MEDS ORDERED: ACETAMINOPHEN 325 MG TAB PO PRN (00:50)
[2023-01-28] MEDS ORDERED: NACL 0.9% 1,000 ML IV SCH (00:50)
[2023-01-28 01:35] VITALS: PULSE 72; RESP 18; O2SAT 97
[2023-01-28 04:00] VITALS: BP 126/78; PULSE 61; PULSE 63; RESP 18; TEMP 97.5; O2SAT 94
[2023-01-28] MEDS ORDERED: ENOXAPARIN 40 MG/0.4 ML SYR SUBQ SCH (09:00)
== END 2023-01-28 08:11 | disposition left against medical advice (07) | DRG 241 ==
LOC: MED 21:16 → MTU 01-28 00:49
PROVIDERS: ADMIT Hospitalist; ATTEND Hospitalist
DX: K29.70 Gastritis, unspecified, without bleeding (principal); E87.1 Hypo-osmolality and hyponatremia; I10 Essential (primary) hypertension; R51.9 Headache, unspecified; J44.9 Chronic obstructive pulmonary disease, unspecified; Z20.822 Contact with and (suspected) exposure to COVID-19; Z79.899 Other long term (current) drug therapy
CPT/HCPCS: 36415; 80053; 83690; 85025; 87081; 96372; 99285; J1885

== ENCOUNTER 2023-01-31 02:25 | Inpatient (IN) | payer OTHER, MEDICARE ==
[2023-01-31] VITALS (11 sets, daily range): BP systolic 95–119; BP diastolic 70–84; PULSE 84–90; RESP 14–20; TEMP 96.8–99.5; O2SAT 93–99
[~2023-01-31] VITALS: Ht 180.3 cm; Wt 104.3 kg
[~2023-01-31 02:25] MED LIST changes: -AZIT500T8 PO; -FAMO20TA13 PO; -FLUT1BLS3 IH; -FURO-570 PO; +LISI-487 PO; -NEBU-109 MC; -PRED20TA5 PO; -TAM75 PO
[2023-01-31 03:02] LABS: BASOPHILS % (AUTO) 0.2 % (0.0-2.0); EOSINOPHILS % (AUTO) 0.1 % (0.0-4.0); HEMATOCRIT 38.1 % (36-52); HEMOGLOBIN 13.1 g/dL (12.0-18.0); LYMPHOCYTES # (AUTO) 0.5 K/uL (2.0-11.5); MEAN CORPUSCULAR HEMOGLOBIN 29 pg (27-31); MEAN CORPUSCULAR HGB CONC 34 g/dL (33-37); MEAN CORPUSCULAR VOLUME 85.1 fL (80-94); MONOCYTES # (AUTO) 1.1 K/uL (0.8-1.0); MONOCYTES % (AUTO) 10.3 % (1.7-9.3); NEUTROPHILS # (AUTO) 8.9 K/uL (1.8-7.7); NEUTROPHILS % (AUTO) 84.4 % (42.2-75.2); PLATELET COUNT (AUTO) 165 K/uL (140-450); RED BLOOD CELL COUNT(AUTO) 4.48 MIL/uL (4.20-6.10); RED CELL DISTRIBUTION WIDTH 13.5 % (11.6-13.7); WHITE BLOOD COUNT (AUTO) 10.5 K/uL (4.8-10.8)
[2023-01-31 03:04] LABS: ANION GAP 13.2 (8-16); CALCIUM 8.9 mg/dL (8.5-10.1); CARBON DIOXIDE 28.7 mmol/L (21-32); CREATININE 2.8 mg/dL (0.6-1.3); POTASSIUM 3.9 mmol/L (3.5-5.1)
[2023-01-31] MEDS ORDERED: NACL 0.9% 1,000 ML IV ONE (03:10)
[2023-01-31] MEDS ORDERED: NACL 0.9% 1,000 ML IV SCH (03:20)
[2023-01-31] MEDS ORDERED: ACETAMINOPHEN 325 MG TAB PO PRN (03:20)
[2023-01-31] MEDS ORDERED: LORazepam 2 MG/ML VIAL IVP PRN (03:20)
[2023-01-31] MEDS ORDERED: ONDANSETRON 4 MG/2 ML VIAL IVP PRN (03:20)
[2023-01-31] MEDS ORDERED: HYDROcodone/APAP 5/325 MG 1 TAB TAB PO PRN (03:20)
[2023-01-31] MEDS ORDERED: ALPR0.5T2 PO (03:26)
[2023-01-31] MEDS ORDERED: IPRATROPIUM 0.02% 0.5 MG/2.5 ML NEBU INH SCH (03:40)
[2023-01-31] MEDS ORDERED: ALBUTEROL 0.083% 2.5 MG/3 ML NEBU INH SCH (03:40)
[2023-01-31] MEDS ORDERED: ALBUTEROL SULFATE/IPRATROPIU 3 ML SOL IH ONE (07:52)
[2023-01-31 12:51] LABS: APPEARANCE,URINE CLEAR (CLEAR); BILIRUBIN,URINE 1+ (NEGATIVE); BLOOD, URINE 3+ (NEGATIVE); COLOR,URINE BROWN (YELLOW); LEUKOCYTE ESTERASE ,URINE NEGATIVE (NEGATIVE); NITRITE, URINE NEGATIVE (NEGATIVE); PH,URINE 5.5 (5.0-9.0); PROTEIN,URINE 3+ (NEGATIVE); UGLUCOSE NEGATIVE (NEGATIVE)
[2023-01-31 13:04] LABS: ICTOTEST NEGATIVE (NEGATIVE); RBC,URINE >100 /HPF (0-5)
[2023-01-31 13:05] LABS: BACTERIA,URINE 2+ /HPF (None Seen); SQUAMOUS EPITHELIAL CELL,UR 4-10 (MOD) /LPF (0-3 (FEW))
[2023-01-31] MEDS: ALBUTEROL SULFATE/IPRATROPIU 3 ML SOL IH SCH ×2 (13:20→19:00)
[2023-01-31 13:24] LABS: ANION GAP 11.8 (8-16); CALCIUM 7.7 mg/dL (8.5-10.1); CARBON DIOXIDE 25.2 mmol/L (21-32); CREATININE 2.8 mg/dL (0.6-1.3)
[2023-01-31 16:26] LABS: ANION GAP 11.8 (8-16); CALCIUM 7.6 mg/dL (8.5-10.1); CARBON DIOXIDE 26.5 mmol/L (21-32); CREATININE 2.8 mg/dL (0.6-1.3); POTASSIUM 3.3 mmol/L (3.5-5.1)
[2023-01-31] MEDS: HYDROcodone/APAP 10/325 MG 1 TAB TAB PO PRN (16:56)
[2023-01-31] MEDS ORDERED: POTASSIUM CHLORIDE 10 MEQ TABER PO SCH (17:48)
[2023-01-31] MEDS ORDERED: NACL 3% 150 ML IV ONE (19:00)
[2023-01-31 20:53] LABS: CARBON DIOXIDE 25.7 mmol/L (21-32); CREATININE 2.6 mg/dL (0.6-1.3); POTASSIUM 3.7 mmol/L (3.5-5.1)
[2023-02-01] VITALS (11 sets, daily range): BP systolic 106–117; BP diastolic 62–79; PULSE 64–99; RESP 14–20; TEMP 97–99.5; O2SAT 90–98
[2023-02-01 06:54] LABS: BASOPHILS % (AUTO) 0.4 % (0.0-2.0); EOSINOPHILS % (AUTO) 0.1 % (0.0-4.0); HEMATOCRIT 39.5 % (36-52); HEMOGLOBIN 13.4 g/dL (12.0-18.0); LYMPHOCYTES # (AUTO) 0.6 K/uL (2.0-11.5); MEAN CORPUSCULAR HEMOGLOBIN 29 pg (27-31); MEAN CORPUSCULAR HGB CONC 34 g/dL (33-37); MEAN CORPUSCULAR VOLUME 86.6 fL (80-94); MONOCYTES # (AUTO) 0.8 K/uL (0.8-1.0); MONOCYTES % (AUTO) 18.2 % (1.7-9.3); NEUTROPHILS # (AUTO) 3.1 K/uL (1.8-7.7); NEUTROPHILS % (AUTO) 67.3 % (42.2-75.2); PLATELET COUNT (AUTO) 140 K/uL (140-450); RED BLOOD CELL COUNT(AUTO) 4.56 MIL/uL (4.20-6.10); RED CELL DISTRIBUTION WIDTH 13.4 % (11.6-13.7); WHITE BLOOD COUNT (AUTO) 4.6 K/uL (4.8-10.8)
[2023-02-01] MEDS: ALBUTEROL SULFATE/IPRATROPIU 3 ML SOL IH SCH ×3 (07:04→19:00)
[2023-02-01 07:05] LABS: ALBUMIN 2.8 g/dL (3.4-5.0); ANION GAP 12.2 (8-16); CARBON DIOXIDE 27.6 mmol/L (21-32); CREATININE 2.5 mg/dL (0.6-1.3); MAGNESIUM 1.7 mg/dL (1.8-2.4); POTASSIUM 3.8 mmol/L (3.5-5.1); TOTAL BILIRUBIN 0.3 mg/dL (0.0-1.0); TOTAL PROTEIN, SERUM 6.2 g/dL (6.4-8.2)
[2023-02-01] MEDS: HYDROcodone/APAP 10/325 MG 1 TAB TAB PO PRN ×2 (08:30→21:33)
[2023-02-01] MEDS ORDERED: NACL 3% 100 ML IV ONE (08:30)
[2023-02-01] MEDS ORDERED: MAG SULF 2000 MG/WATER PREMIX 50 ML IV ONE (12:00)
[2023-02-01 12:40] LABS: ANION GAP 10.4 (8-16); CALCIUM 8.2 mg/dL (8.5-10.1); CARBON DIOXIDE 28.4 mmol/L (21-32); CREATININE 2.4 mg/dL (0.6-1.3); POTASSIUM 3.8 mmol/L (3.5-5.1)
[2023-02-01] MEDS ORDERED: SODIUM CHLORIDE 1 GM TAB PO SCH (15:45)
[2023-02-01 18:22] LABS: ANION GAP 12.9 (8-16); CALCIUM 8.1 mg/dL (8.5-10.1); CARBON DIOXIDE 25.1 mmol/L (21-32); CREATININE 2.2 mg/dL (0.6-1.3)
[2023-02-01] MEDS ORDERED: NACL 3% 500 ML IV ONE (19:20)
[2023-02-02] VITALS (12 sets, daily range): BP systolic 95–116; BP diastolic 62–85; PULSE 68–148; RESP 16–20; TEMP 96.9–98.1; O2SAT 88–99
[2023-02-02] MEDS: ALPRAZolam 0.5 MG TAB PO PRN ×2 (00:30→11:14)
[2023-02-02] MEDS: ALBUTEROL SULFATE/IPRATROPIU 3 ML SOL IH PRN ×3 (04:44→22:04)
[2023-02-02] MEDS ORDERED: NACL 3% 500 ML IV SCH (05:30)
[2023-02-02 05:56] LABS: ANION GAP 9.6 (8-16); CALCIUM 8.2 mg/dL (8.5-10.1); CARBON DIOXIDE 29.7 mmol/L (21-32); CREATININE 2.1 mg/dL (0.6-1.3); POTASSIUM 3.3 mmol/L (3.5-5.1)
[2023-02-02] MEDS: ALBUTEROL SULFATE/IPRATROPIU 3 ML SOL IH SCH ×3 (06:53→19:00)
[2023-02-02] MEDS ORDERED: POTASSIUM CHLORIDE 10 MEQ TABER PO SCH (07:54)
[2023-02-02] MEDS ORDERED: NACL 3% 150 ML IV SCH (08:00)
[2023-02-02] MEDS ORDERED: DILTIAZEM 25 MG/5 ML VIAL IVP SCH (10:33)
[2023-02-02 13:40] LABS: ANION GAP 9.9 (8-16); CALCIUM 8.4 mg/dL (8.5-10.1); POTASSIUM 3.9 mmol/L (3.5-5.1)
[2023-02-02] MEDS ORDERED: METOPROLOL 25 MG TAB PO SCH (13:45)
[2023-02-02] MEDS ORDERED: AMIODARONE 200 MG TAB PO SCH (17:01)
[2023-02-02] MEDS ORDERED: IBUPROFEN 600 MG TAB PO PRN (20:10)
[2023-02-02 20:26] LABS: ANION GAP 10.3 (8-16); CALCIUM 7.8 mg/dL (8.5-10.1); CARBON DIOXIDE 30.4 mmol/L (21-32); CREATININE 1.7 mg/dL (0.6-1.3); POTASSIUM 3.7 mmol/L (3.5-5.1)
[2023-02-02] MEDS: AMIODARONE 200 MG TAB PO SCH (21:25)
[2023-02-02] MEDS: DILTIAZEM 60 MG TAB PO SCH (21:26)
[2023-02-02] MEDS: APIXABAN 2.5 MG TAB PO SCH (21:27)
[2023-02-03] VITALS (11 sets, daily range): BP systolic 98–130; BP diastolic 60–77; PULSE 66–107; RESP 16–20; TEMP 96.5–98.7; O2SAT 92–98
[2023-02-03] MEDS: DILTIAZEM 60 MG TAB PO SCH ×3 (05:00→20:53)
[2023-02-03] MEDS: ALPRAZolam 0.5 MG TAB PO PRN ×2 (05:41→17:25)
[2023-02-03] MEDS: ALBUTEROL SULFATE/IPRATROPIU 3 ML SOL IH SCH ×3 (06:51→19:00)
[2023-02-03 06:56] LABS: ANION GAP 12.5 (8-16); CALCIUM 8.1 mg/dL (8.5-10.1); CARBON DIOXIDE 28.1 mmol/L (21-32); CREATININE 1.8 mg/dL (0.6-1.3); POTASSIUM 3.6 mmol/L (3.5-5.1)
[2023-02-03 07:12] LABS: FREE T4 (FREE THYROXINE) 1.24 ng/dL (0.76-1.46); THYROID STIMULATING HORMONE 0.97 uIU/mL (0.34-3.74)
[2023-02-03] MEDS: AMIODARONE 200 MG TAB PO SCH ×2 (09:24→20:53)
[2023-02-03] MEDS: APIXABAN 2.5 MG TAB PO SCH ×2 (09:26→20:59)
[2023-02-03] MEDS: SODIUM CHLORIDE 1 GM TAB PO SCH ×3 (11:22→16:46)
[2023-02-03] MEDS: ALBUTEROL SULFATE/IPRATROPIU 3 ML SOL IH PRN (15:56)
[2023-02-03 20:27] LABS: CALCIUM 8.2 mg/dL (8.5-10.1); CARBON DIOXIDE 30.8 mmol/L (21-32); POTASSIUM 3.8 mmol/L (3.5-5.1)
[2023-02-04] VITALS (12 sets, daily range): BP systolic 111–126; BP diastolic 74–81; PULSE 66–78; RESP 16–20; TEMP 97.4–98.4; O2SAT 92–100
[2023-02-04] MEDS: ALPRAZolam 0.5 MG TAB PO PRN (01:03)
[2023-02-04] MEDS: HYDROcodone/APAP 10/325 MG 1 TAB TAB PO PRN (01:08)
[2023-02-04] MEDS: DILTIAZEM 60 MG TAB PO SCH ×2 (04:12→12:08)
[2023-02-04 07:12] LABS: ANION GAP 12.8 (8-16); CALCIUM 7.9 mg/dL (8.5-10.1); CARBON DIOXIDE 29.8 mmol/L (21-32); CREATININE 1.8 mg/dL (0.6-1.3); POTASSIUM 3.6 mmol/L (3.5-5.1)
[2023-02-04] MEDS: ALBUTEROL SULFATE/IPRATROPIU 3 ML SOL IH SCH ×2 (08:08→12:58)
[2023-02-04] MEDS: SODIUM CHLORIDE 1 GM TAB PO SCH ×2 (08:13→12:08)
[2023-02-04] MEDS: AMIODARONE 200 MG TAB PO SCH (08:13)
[2023-02-04] MEDS: APIXABAN 2.5 MG TAB PO SCH (08:15)
[2023-02-04] MEDS ORDERED: AMIO200T10 PO (12:22)
[2023-02-04] MEDS ORDERED: SODI100076 PO (12:22)
[2023-02-04] MEDS ORDERED: DILT60TA97 PO (12:22)
[2023-02-04] MEDS ORDERED: APIX2.5 PO (12:22)
== END 2023-02-04 14:24 | disposition home or self-care (01) | DRG 426 ==
LOC: MED 02:25 → MTU 03:23
PROVIDERS: ADMIT Internal Medicine; ATTEND Internal Medicine
DX: E87.1 Hypo-osmolality and hyponatremia (principal); N17.9 Acute kidney failure, unspecified; I10 Essential (primary) hypertension; I48.91 Unspecified atrial fibrillation; E87.6 Hypokalemia; J44.9 Chronic obstructive pulmonary disease, unspecified; Z82.49 Family history of ischemic heart disease and other diseases of the circulatory system; Z72.0 Tobacco use; Z71.6 Tobacco abuse counseling
CPT/HCPCS: 36415; 71045; 76770; 80048; 80053; 81001; 83735; 83935; 84295; 84300; 84439; 84443; 85025; 87081; 87086; 94640; 99285; J2405; J3475; J3490; J7613; J7644; Q0092